=== PATIENT | male | born 1990 | race Caucasian/White ===

== ENCOUNTER → 2017-05-04 | Outpatient (REF) | payer BC ==
[2017-05-04 13:18] LABS: PLATELET COUNT, AUTOMATED 147 K/uL (150-450)
== END ==
PROVIDERS: ATTEND Physician Assistant Medical
DX: R50.9 Fever, unspecified (principal)
CPT/HCPCS: 82040; 82247; 82310; 82374; 82435; 82565; 82947; 84075; 84132; 84155; 84295; 84450; 84460; 84520; 85025; 87045

== ENCOUNTER → 2017-11-27 | Outpatient (CLI) | payer BC ==
--- NOTE | 2017-11-27 13:14 | RADIOLOGY IMAGING REPORT ---
FACILITY: [facility] [place] PATIENT NAME: Alfredo Salgado : 1990 MR: [id number] V: [id number] EXAM DATE: ORDERING PHYSICIAN: TOM YEE TECHNOLOGIST: Location: [facility] Patient: Alfredo Salgado : 1990 Visit/Account:[id number] Date of Sevice: 11/27/2017 SCROTAL ULTRASOUND INDICATION: Testicular pain COMPARISON: None available. FINDINGS: Right testicle measures 4.8 x 2.3 x 3.1 cm in cc, AP, and transverse dimensions respectively. There is normal arterial and venous blood flow. No evidence of hydrocele.. Mild varicocele. The right epididymal head measures 1.5 cm. Left testicle measures 4.5 x 2.3 x 3.0 cm in cc, AP, and transverse dimensions respectively. There appears to be increased flow Trace hydrocele Moderate varicocele The left epididymal head measures 1.8 cm. No increased vascularity The bilateral testicles appear homogenous in echogenicity. IMPRESSION: 1. Bilateral varicoceles, left greater than right. 2. Apparent increased vascularity within the left testicle which may be related to orchitis. 3. Small right epididymal head cyst. 4. Small left hydrocele. Report Dictated By: Bernardo Izquierdo MD at 11/27/2017 1:03 PM Report E-Signed By: Bernardo Izquierdo MD at 11/27/2017 1:11 PM WSN:[id number]
== END ==
LOC: US 10:58
PROVIDERS: ATTEND Nurse Practitioner Family
DX: I86.1 Scrotal varices (principal); N50.3 Cyst of epididymis; N43.3 Hydrocele, unspecified
CPT/HCPCS: 76870